=== PATIENT | female | born 1990 | race African-American/Black ===

== ENCOUNTER 2017-01-14 17:02 | Emergency (ER) | payer MEDICAID ==
[~2017-01-14] VITALS: Ht 149.9 cm; Wt 81.0 kg
[~2017-01-14 17:02] MED LIST: FERR1TAB25 PO; IBUP-779 PO; MULT-783 PO
[2017-01-14] MEDS ORDERED: SODIUM CHLORIDE 0.9% 1,000 ML IV ONE (22:34)
[2017-01-14] MEDS ORDERED: ACETAMINOPHEN 325MG TABLET PO STA (22:34)
[2017-01-14] MEDS ORDERED: ONDANSETRON HCL 4MG/2ML VIAL IV ONE (22:45)
[2017-01-14 23:00] LABS: BASOPHILS % 0.5 % (0.0-2.0); EOSINOPHILS % 0.8 % (0.0-5.0); HEMATOCRIT. 36.5 % (36.0-48.0); HEMOGLOBIN. 12.6 g/dL (12.0-16.0); LYMPHOCYTES % 21.9 % (20.0-50.0); MEAN CORPUSCULAR HEMOGLOBIN 33.4 pg (28.0-32.0); MEAN CORPUSCULAR VOLUME 96.6 fL (81.0-99.0); MEAN PLATELET VOLUME 8.5 fl (7.4-10.4); MONOCYTES % 7.8 % (2.0-8.0); PLATELET 285 x1000/uL (130-400); RED BLOOD CELL COUNT 3.77 mill/uL (4.2-5.4); RED CELL DISTRIBUTION WIDTH 12.9 % (11.6-14.6)
[2017-01-14 23:04] LABS: CARBON DIOXIDE 23 mEq/L (21-32); CHLORIDE 103 mEq/L (98-107)
[2017-01-14 23:24] LABS: B-HCG QUANTITATIVE 50717 mIU/mL (<3)
[2017-01-15 02:10] LABS: GLUCOSE URINE NEGATIVE (NEGATIVE); KETONES URINE 1+ (NEGATIVE); LEUKOCYTE ESTERASE URINE TRACE (NEGATIVE); NITRITE URINE NEGATIVE (NEGATIVE); OCCULT BLOOD URINE NEGATIVE (NEGATIVE); PH URINE 6.5 (4.5-8.0); PROTEIN URINE NEGATIVE (NEGATIVE); SPECIFIC GRAVITY URINE 1.006 (1.005-1.030)
[2017-01-15 02:12] LABS: COLOR URINE YELLOW (YELLOW)
[2017-01-15 02:13] LABS: CLARITY URINE SL HAZY (CLEAR)
[2017-01-15 03:21] VITALS: BP 105/62
== END 2017-01-15 03:22 | disposition home or self-care (01) ==
LOC: ER 22:28
DX: O21.0 Mild hyperemesis gravidarum (principal); Z3A.01 Less than 8 weeks gestation of pregnancy
CPT/HCPCS: 36415; 76801; 76817; 80048; 81001; 84702; 85025; 96361; 96374; 99285; J2405; J7030

== ENCOUNTER 2019-04-22 16:06 | Emergency (ER) | payer MEDICAID ==
[~2019-04-22] VITALS: Ht 149.9 cm; Wt 93.0 kg
[2019-04-22] MEDS ORDERED: ONDANSETRON HCL 4MG/2ML INJ IV STA (17:38)
[2019-04-22] MEDS ORDERED: SODIUM CHLORIDE 0.9% 1,000 ML IV ONE (17:38)
[2019-04-22] MEDS ORDERED: KETOROLAC 30MG/ML VIAL IV STA (17:38)
[2019-04-22 17:58] LABS: HEMATOCRIT. 37.6 % (36.0-48.0); HEMOGLOBIN. 12.5 g/dL (12.0-16.0); MEAN CORPUSCULAR HEMOGLOBIN 31.8 pg (28.0-32.0); MEAN CORPUSCULAR VOLUME 95.6 fL (81.0-99.0); MEAN PLATELET VOLUME 8.5 fl (7.4-10.4); PLATELET 433 x1000/uL (130-400); RED BLOOD CELL COUNT 3.93 mill/uL (4.2-5.4); RED CELL DISTRIBUTION WIDTH 12.5 % (11.6-14.6)
[2019-04-22] MEDS ORDERED: ACETAMINOPHEN 650MG/20.3ML UDC PO ONE (18:00)
[2019-04-22 18:06] LABS: CHLORIDE 105 mEq/L (98-107)
[2019-04-22 18:25] LABS: CLARITY URINE CLOUDY (CLEAR); COLOR URINE DARK YELLOW (YELLOW); KETONES URINE 4+ (NEGATIVE); LEUKOCYTE ESTERASE URINE 2+ (NEGATIVE); NITRITE URINE NEGATIVE (NEGATIVE); OCCULT BLOOD URINE NEGATIVE (NEGATIVE); PROTEIN URINE 1+ (NEGATIVE); SPECIFIC GRAVITY URINE 1.034 (1.005-1.030)
[2019-04-22 19:18] LABS: PLATELET ESTIMATE INCREASED
[2019-04-22] MEDS ORDERED: ONDANSETRON HCL 4MG/2ML INJ IV ONE ×2 (21:45→22:00)
[2019-04-22] MEDS ORDERED: CEFTRIAXONE 1 G PREMIX 50 ML IV ONE (22:00)
[2019-04-22 23:09] VITALS: BP 117/74
== END 2019-04-22 23:12 | disposition home or self-care (01) ==
LOC: ER 16:06
DX: R10.2 Pelvic and perineal pain (principal); R11.10 Vomiting, unspecified; Z79.899 Other long term (current) drug therapy
CPT/HCPCS: 36415; 76705; 76805; 80053; 81003; 81025; 83690; 85025; 87077; 87086; 87186; 96361; 96365; 96375; 99284; J0696; J2405; J7030; Z7610; J1885

== ENCOUNTER 2019-06-26 09:52 | Observation (INO) | payer MEDICAID | END 2019-06-26 12:00 | disposition home or self-care (01) | LOC: 8 EST LDRP 09:52 | PROVIDERS: ADMIT Obstetrics & Gynecology; ATTEND Obstetrics & Gynecology | DX: O62.9 Abnormality of forces of labor, unspecified (principal); Z3A.38 38 weeks gestation of pregnancy | CPT/HCPCS: 99281; G0378 ==

== ENCOUNTER 2019-06-27 08:36 | Inpatient (IN) | payer MEDICAID ==
[~2019-06-27] VITALS: Ht 149.9 cm; Wt 92.5 kg
[~2019-06-27 08:36] MED LIST changes: -IBUP-779 PO
[2019-06-27] MEDS ORDERED: DEXT 5%/LR + PITOCIN 20UNITS/L 1,000 ML IV SCH ×2 (09:20→19:03)
[2019-06-27] MEDS ORDERED: LACTATED RINGERS 500 ML IV SCH (09:20)
[2019-06-27] MEDS ORDERED: CARBOPROST TROMETHAMINE 250 MCG/ML AMPUL IM PRN (09:30)
[2019-06-27] MEDS ORDERED: LIDOCAINE HCL 1% 20ML VIAL (Pyxis) INJ INFIL SCH (09:30)
[2019-06-27] MEDS ORDERED: BUTORPHANOL TARTRATE 2 MG/ML VIAL IV PRN (09:30)
[2019-06-27] MEDS ORDERED: METHYLERGONOVINE MALEATE 0.2 MG/ML IM PRN (09:30)
[2019-06-27] MEDS ORDERED: MISOPROSTOL 100MCG TABLET VG SCH (09:30)
[2019-06-27] MEDS ORDERED: LIDOCAINE HCL 2%/EPINEPHRINE 1:100,000 20 ML VIAL INFIL ONE (10:19)
[2019-06-27 11:30] LABS: CLARITY URINE CLOUDY (CLEAR); COLOR URINE DARK YELLOW (YELLOW); KETONES URINE NEGATIVE (NEGATIVE); LEUKOCYTE ESTERASE URINE 2+ (NEGATIVE); NITRITE URINE NEGATIVE (NEGATIVE); OCCULT BLOOD URINE 2+ (NEGATIVE); PH URINE 8.5 (4.5-8.0); PROTEIN URINE TRACE (NEGATIVE)
[2019-06-27 11:33] LABS: BASOPHILS % 0.6 % (0.0-2.0); HEMATOCRIT. 35.5 % (36.0-48.0); HEMOGLOBIN. 11.7 g/dL (12.0-16.0); LYMPHOCYTES % 18.2 % (20.0-50.0); MEAN CORPUSCULAR HEMOGLOBIN 30.7 pg (28.0-32.0); MEAN CORPUSCULAR VOLUME 93.5 fL (81.0-99.0); MEAN PLATELET VOLUME 10.6 fl (7.4-10.4); MONOCYTES % 5.5 % (2.0-8.0); NEUTROPHILS % 74.7 % (40.0-76.0); PLATELET 443 x1000/uL (130-400); RED BLOOD CELL COUNT 3.79 mill/uL (4.2-5.4); RED CELL DISTRIBUTION WIDTH 12.8 % (11.6-14.6)
[2019-06-27 11:37] LABS: INR 0.9; PARTIAL THROMBOPLASTIN TIME 28.7 sec (23.4-31.0); PROTHROMBIN TIME 9.4 sec (9.6-11.0)
[2019-06-27] MEDS ORDERED: EPHEDRINE SULFATE 50MG/ML VIAL ONE (12:37)
[2019-06-27] MEDS ORDERED: FENTANYL CITRATE/PF 50MCG/ML 2ML VIAL ONE (12:37)
[2019-06-27] MEDS ORDERED: BUPIVACAINE HCL/PF 0.25% (2.5MG/ML) 10ML ONE (12:37)
[2019-06-27] MEDS ORDERED: SODIUM CHLORIDE 0.9% 10ML VIAL ONE (12:37)
[2019-06-27] MEDS ORDERED: ROPIVACAINE HCL/PF 0.2% (2MG/ML) EPID 200ML EPI ONE (12:45)
[2019-06-27 12:57] LABS: *AMPHETAMINES SCREEN URINE NEGATIVE (NEGATIVE); *BARBITURATES SCREEN URINE NEGATIVE (NEGATIVE); *BENZODIAZEPINES SCREEN URINE NEGATIVE (NEGATIVE); *COCAINE SCREEN URINE NEGATIVE (NEGATIVE); METHADONE URINE SCREEN NEGATIVE (NEGATIVE)
[2019-06-27 12:58] LABS: CANNABINOID URINE SCREEN NEGATIVE (NEGATIVE); OPIATES URINE SCREEN NEGATIVE (NEGATIVE); PHENCYCLIDINE URINE SCREEN NEGATIVE (NEGATIVE)
[2019-06-27 13:05] LABS: HEPATITIS B SURFACE ANTIGEN NEGATIVE
[2019-06-27] MEDS ORDERED: TERBUTALINE SULFATE 1MG/ML VIAL ONE (17:40)
[2019-06-27] MEDS ORDERED: TERBUTALINE SULFATE 1MG/ML VIAL SUBCUT ONE (17:45)
[2019-06-27] MEDS: VANCOMYCIN 750 MG PREMIX 150 ML IV SCH ×2 (17:46→18:00)
[2019-06-27] MEDS ORDERED: OXYTOCIN 10 UNITS/ML 1ML ONE (17:59)
[2019-06-27] MEDS ORDERED: PHENYLEPHRINE HCL 10 MG/ML 1ML (IV VIAL) IV ONE (17:59)
[2019-06-27] MEDS ORDERED: ONDANSETRON HCL 4MG/2ML INJ ONE (18:00)
[2019-06-27] MEDS ORDERED: AMPICILLIN 2,000 MG in SODIUM CHLORIDE 0.9% 100 ML IV NR (18:00)
[2019-06-27] MEDS ORDERED: MORPHINE SULFATE/PF 1MG/ML 10ML AMP ONE (18:29)
[2019-06-27] MEDS ORDERED: TERBUTALINE SULFATE 1MG/ML VIAL SUBCUT NR (18:45)
[2019-06-27] MEDS ORDERED: RHO(D) IMMUNE GLOBULIN 300 MCG/SYR IM PRN (19:15)
[2019-06-27] MEDS ORDERED: BISACODYL 10MG SUPP PR PRN (19:15)
[2019-06-27] MEDS ORDERED: VANCOMYCIN 500 MG PREMIX 100 ML IV SCH (19:15)
[2019-06-27] MEDS ORDERED: HYDROMORPHONE HCL/PF 2MG/ML CPJ IM PRN (19:15)
[2019-06-27] MEDS ORDERED: IBUPROFEN 400MG TABLET PO PRN (19:15)
[2019-06-27 20:45] VITALS: BP 128/62
[2019-06-27] MEDS ORDERED: AMPICILLIN 1,000 MG in SODIUM CHLORIDE 0.9% 50 ML IV SCH (22:00)
[2019-06-28] VITALS: BP 120/68
[2019-06-28 04:00] VITALS: BP 98/55
[2019-06-28] MEDS: VANCOMYCIN 750 MG PREMIX 150 ML IV SCH (06:06)
[2019-06-28 06:50] LABS: BASOPHILS % 0.7 % (0.0-2.0); EOSINOPHILS % 0.1 % (0.0-5.0); HEMATOCRIT. 33.1 % (36.0-48.0); HEMOGLOBIN. 10.8 g/dL (12.0-16.0); MEAN CORPUSCULAR HEMOGLOBIN 30.6 pg (28.0-32.0); MEAN CORPUSCULAR VOLUME 93.6 fL (81.0-99.0); MEAN PLATELET VOLUME 9.6 fl (7.4-10.4); MONOCYTES % 4.7 % (2.0-8.0); NEUTROPHILS % 84.5 % (40.0-76.0); PLATELET 411 x1000/uL (130-400); RED BLOOD CELL COUNT 3.54 mill/uL (4.2-5.4); RED CELL DISTRIBUTION WIDTH 12.9 % (11.6-14.6)
[2019-06-28 08:00] VITALS: BP 96/48
[2019-06-28] MEDS: IBUPROFEN 800MG TABLET PO PRN ×2 (14:25→23:55)
[2019-06-28] MEDS ORDERED: DIPHENHYDRAMINE 25MG CAPSULE PO PRN (16:30)
[2019-06-28 17:09] VITALS: BP 89/49
[2019-06-28] MEDS: VANCOMYCIN 1 G PREMIX 200 ML IV SCH (18:07)
[2019-06-28 20:00] VITALS: BP 96/57
[2019-06-29 04:20] VITALS: BP 105/64
[2019-06-29] MEDS: VANCOMYCIN 1 G PREMIX 200 ML IV SCH (06:04)
[2019-06-29 07:02] LABS: BASOPHILS % 0.6 % (0.0-2.0); EOSINOPHILS % 0.8 % (0.0-5.0); HEMATOCRIT. 28.8 % (36.0-48.0); HEMOGLOBIN. 9.7 g/dL (12.0-16.0); LYMPHOCYTES % 13.9 % (20.0-50.0); MEAN CORPUSCULAR HEMOGLOBIN 31.7 pg (28.0-32.0); MEAN CORPUSCULAR VOLUME 93.5 fL (81.0-99.0); MEAN PLATELET VOLUME 9.3 fl (7.4-10.4); MONOCYTES % 5.3 % (2.0-8.0); NEUTROPHILS % 79.4 % (40.0-76.0); PLATELET 360 x1000/uL (130-400); RED BLOOD CELL COUNT 3.08 mill/uL (4.2-5.4); RED CELL DISTRIBUTION WIDTH 13.2 % (11.6-14.6)
[2019-06-29 07:30] VITALS: BP 100/55
[2019-06-29 07:31] LABS: CHLORIDE 110 mEq/L (98-107)
[2019-06-29] MEDS: IBUPROFEN 800MG TABLET PO PRN ×2 (12:12→20:37)
[2019-06-29 17:22] VITALS: BP 100/65
[2019-06-29 20:00] VITALS: BP 116/66
[2019-06-30] VITALS: BP 98/57
[2019-06-30] MEDS: IBUPROFEN 800MG TABLET PO PRN (02:46)
[2019-06-30 04:00] VITALS: BP 100/65
[2019-06-30] MEDS ORDERED: IBUP-2030 PO (06:34)
[2019-06-30] MEDS ORDERED: MEDROXYPROGESTERONE ACETATE 150MG/ML VIAL IM ONE (07:30)
[2019-06-30 07:45] VITALS: BP 114/68
== END 2019-06-30 12:17 | disposition home or self-care (01) | DRG 540 ==
LOC: 8 EST LDRP 08:36 → OBSVTOIN 08:36 → 8 EST LDRP 08:51 → 8EST 20:17
PROVIDERS: ADMIT Obstetrics & Gynecology; ATTEND Obstetrics & Gynecology
PROC: 10D00Z1 Extraction of Products of Conception, Low, Open Approach (ICD-10-PCS; principal; 2019-06-27)
DX: O76 Abnormality in fetal heart rate and rhythm complicating labor and delivery (principal); O99.214 Obesity complicating childbirth; O99.03 Anemia complicating the puerperium; Z82.49 Family history of ischemic heart disease and other diseases of the circulatory system; Z37.0 Single live birth; Z83.3 Family history of diabetes mellitus; Z3A.38 38 weeks gestation of pregnancy
CPT/HCPCS: 36415; 80048; 80305; 81003; 85025; 86592; 86703; 86762; 86850; 86900; 87340; 88307; 99281; G0378; J0290; J0595; J1050; J1170; J2210; J2274; J2370; J2405; J2590; J2795; J3010; J3105; J3370; J3490; J7050; Q0163; A4315